=== PATIENT | female | born 1940 | race Caucasian/White ===

== ENCOUNTER 2018-06-11 21:36 | Outpatient (REF) | payer MEDICARE, SELFPAY ==
[2018-06-11 22:12] LABS: Anion Gap 4.5 mmol/L (3-11); BUN 15 mg/dL (7-18); CO2 36.5 mmol/L (21.0-32.0); CREATININE 0.74 mg/dL (0.55-1.02); Calcium 9.5 mg/dL (8.5-10.1); Chloride 95 mmol/L (98-107); Glucose 256 mg/dL (70-100); Potassium 5.1 mmol/L (3.5-5.1); Sodium 136 mmol/L (136-145)
== END 2018-06-11 21:56 ==
LOC: NCHCN 21:36
PROVIDERS: PCP Family Medicine; Visit Provider Family Medicine
DX: I10 Essential (primary) hypertension (principal)
CPT/HCPCS: 80048

== ENCOUNTER 2018-09-16 20:56 | Outpatient (REF) | payer MEDICARE, SELFPAY ==
[2018-09-16 22:14] LABS: Anion Gap 5.8 mmol/L (3-11); BUN 31 mg/dL (7-18); CO2 35.2 mmol/L (21.0-32.0); CREATININE 0.91 mg/dL (0.55-1.02); Calcium 9.3 mg/dL (8.5-10.1); Chloride 97 mmol/L (98-107); Glucose 154 mg/dL (70-100); Potassium 4.6 mmol/L (3.5-5.1); Sodium 138 mmol/L (136-145)
== END 2018-09-16 21:16 ==
LOC: LBN 20:56
PROVIDERS: PCP Family Medicine; Visit Provider Family Medicine
DX: I50.9 Heart failure, unspecified (principal)
CPT/HCPCS: 80048

== ENCOUNTER 2019-05-13 11:44 | Outpatient (CLI) | payer MEDICARE, SELFPAY ==
[2019-05-13 13:34] LABS: Abs Immature Grans 0.03 k/cumm (0.0-0.09); Absolute Basophil Count 0.04 k/cumm (0.0-0.2); Absolute Eosinophil Count 0.23 k/cumm (0.0-0.7); Absolute Monocyte Count 0.76 k/cumm (0.11-0.7); Absolute Neutrophil Count 5.05 k/cumm (1.2-6.7); Basophils % 0.5; Eosinophils % 2.9; HCT 46.8 % (36.0-46.0); HGB 15.3 g/dL (12.0-15.5); Immature Grans % 0.4; Lymphocytes % 23.7; Mean Corp. HGB Concentration 32.7 g/dL (32.0-36.0); Mean Corpuscular Volume 97.9 fL (80-95); Mean Platelet Volume 12.6 fL (8.0-11.0); Monocytes % 9.5; Platelet Count 284 x1000/uL (130-400); RBC 4.78 m/cumm (4.00-5.20); RBC Distribution Width 13.9 % (11.7-14.6); White Blood Cell Count 8.01 k/cumm (4.4-10.8)
[2019-05-13 13:53] LABS: Anion Gap 6.9 mmol/L (3-11); BUN 15 mg/dL (7-18); CO2 35.1 mmol/L (21.0-32.0); CREATININE 0.73 mg/dL (0.55-1.02); Chloride 95 mmol/L (98-107); Glucose 173 mg/dL (70-100); Potassium 3.6 mmol/L (3.5-5.1); Sodium 137 mmol/L (136-145)
[2019-05-13 14:48] LABS: Hemoglobin A1C 7.3 % (4.5-6.2)
== END 2019-05-13 12:04 ==
PROVIDERS: PCP Family Medicine; Visit Provider Nurse Practitioner Adult Health
DX: E11.9 Type 2 diabetes mellitus without complications (principal); D72.9 Disorder of white blood cells, unspecified
CPT/HCPCS: 36415; 80048; 83036; 85025

== ENCOUNTER 2019-05-16 23:12 | Outpatient (REF) | payer MEDICARE, SELFPAY ==
[2019-05-18 19:25] LABS: Specimen Description Feces
[2019-05-19 07:48] LABS: Result Positive
== END 2019-05-16 23:32 ==
LOC: LBN 23:12
PROVIDERS: PCP Family Medicine; Visit Provider Nurse Practitioner Adult Health
DX: K59.1 Functional diarrhea (principal)
CPT/HCPCS: 87324; 87798

== ENCOUNTER 2019-06-01 15:26 | Outpatient (REF) | payer MEDICARE, SELFPAY ==
[2019-06-01 16:02] LABS: Abs Immature Grans 0.02 k/cumm (0.0-0.09); Absolute Basophil Count 0.06 k/cumm (0.0-0.2); Absolute Eosinophil Count 0.15 k/cumm (0.0-0.7); Absolute Lymphocyte Count 2.46 k/cumm (1.2-3.4); Absolute Monocyte Count 0.97 k/cumm (0.11-0.7); Absolute Neutrophil Count 5.13 k/cumm (1.2-6.7); Basophils % 0.7; Eosinophils % 1.7; HCT 46.2 % (36.0-46.0); HGB 15.7 g/dL (12.0-15.5); Immature Grans % 0.2; Mean Corpuscular Hemoglobin 32.9 pg (27.0-33.0); Mean Corpuscular Volume 96.9 fL (80-95); Neutrophils % 58.4; Platelet Count 294 x1000/uL (130-400); RBC 4.77 m/cumm (4.00-5.20); RBC Distribution Width 14.6 % (11.7-14.6); White Blood Cell Count 8.79 k/cumm (4.4-10.8)
[2019-06-01 16:07] LABS: Anion Gap 8.1 mmol/L (3-11); BUN 10 mg/dL (7-18); CO2 33.9 mmol/L (21.0-32.0); CREATININE 0.71 mg/dL (0.55-1.02); Calcium 8.6 mg/dL (8.5-10.1); Chloride 101 mmol/L (98-107); Glucose 170 mg/dL (70-100); Potassium 3.3 mmol/L (3.5-5.1); Sodium 143 mmol/L (136-145)
== END 2019-06-01 15:46 ==
LOC: LBN 15:26
PROVIDERS: PCP Family Medicine; Visit Provider Nurse Practitioner Adult Health
DX: R71.8 Other abnormality of red blood cells (principal); N39.0 Urinary tract infection, site not specified; E11.9 Type 2 diabetes mellitus without complications
CPT/HCPCS: 80048; 85025

== ENCOUNTER 2019-06-10 10:40 | Outpatient (CLI) | payer MEDICARE, SELFPAY ==
[2019-06-10 12:28] LABS: Anion Gap 6.5 mmol/L (3-11); BUN 10 mg/dL (7-18); CO2 34.5 mmol/L (21.0-32.0); Calcium 9.2 mg/dL (8.5-10.1); Chloride 103 mmol/L (98-107); Glucose 210 mg/dL (70-100); Potassium 4.3 mmol/L (3.5-5.1); Sodium 144 mmol/L (136-145)
== END 2019-06-10 11:00 ==
PROVIDERS: PCP Family Medicine; Visit Provider Nurse Practitioner Adult Health
DX: I50.9 Heart failure, unspecified (principal)
CPT/HCPCS: 80048

== ENCOUNTER 2019-06-25 16:02 | Outpatient (REF) | payer MEDICARE, SELFPAY ==
[2019-06-25 17:16] LABS: Abs Immature Grans 0.06 k/cumm (0.0-0.09); HCT 51.8 % (36.0-46.0); HGB 16.8 g/dL (12.0-15.5); Mean Corp. HGB Concentration 32.4 g/dL (32.0-36.0); Mean Corpuscular Volume 98.7 fL (80-95); Mean Platelet Volume 12.1 fL (8.0-11.0); Platelet Count 292 x1000/uL (130-400); RBC 5.25 m/cumm (4.00-5.20); RBC Distribution Width 14.7 % (11.7-14.6); White Blood Cell Count 14.26 k/cumm (4.4-10.8)
[2019-06-25 17:31] LABS: ALT 41 U/L (14-59); AST 36 U/L (15-37); Albumin 3.3 g/dL (3.4-5.0); Alkaline Phosphatase 171 U/L (46-116); Anion Gap 11.1 mmol/L (3-11); BUN 15 mg/dL (7-18); Bilirubin, Total 0.6 mg/dL (0.2-1.0); CO2 31.9 mmol/L (21.0-32.0); CREATININE 0.74 mg/dL (0.55-1.02); Calcium 9.7 mg/dL (8.5-10.1); Chloride 96 mmol/L (98-107); Glucose 144 mg/dL (74-106); Magnesium 1.7 mg/dL (1.8-2.4); Potassium 4.5 mmol/L (3.5-5.1); Sodium 139 mmol/L (136-145); Total Protein 7.3 g/dL (6.4-8.2)
[2019-06-25 18:32] LABS: Absolute Lymphocyte Count 0.57 k/cumm (1.2-3.4); Absolute Neutrophil Count 11.98 k/cumm (1.2-6.7); Atypical Lymphocytes % 0; Diff Comment Manual Differential; RBC Morphology Normal
[2019-06-25 18:33] LABS: Absolute Monocyte Count 1.71 k/cumm (0.11-0.7)
== END 2019-06-25 16:22 ==
LOC: LBN 16:02
PROVIDERS: PCP Family Medicine; Visit Provider Nurse Practitioner Adult Health
DX: I11.0 Hypertensive heart disease with heart failure (principal); M62.81 Muscle weakness (generalized)
CPT/HCPCS: 80053; 83735; 85025

== ENCOUNTER 2019-08-07 02:07 | Outpatient (CLI) | payer MEDICARE, OTHER, SELFPAY ==
[2019-08-07] MEDS: Regadenoson 0.4 MG/5 ML SYR IVP (14:01)
--- NOTE | 2019-08-07 14:15 | DI.NM_ITS ---
APPROVED REPORT Exam: Pharmacologic Patient Location: Out-Patient Room/Bed: Stress Nurse: Chloe Jeronimo RN BMI: 36.35 Indications: Pre Surgical Screening. Medical History Medical History: Demand Ischemia, Heart Failure, GERD, Morbid Obesity, CHF, Frequent PVC???s, Sleep A pnea. Cardiac Medications: Simvastatin, Aspirin, Furosemide, Metoprolol Succinate, Losartan Allergies: IVP Dye Cardiac Risk Factors: HTN, PVD, Diabetes (insulin), Hyperlipidemia Previous Cardiac Procedures: None Pretest Chest Pain Characteristics: No chest pain Exercise History: Sedentary Physical Disabilities: Back--History compression fracture. Lung Sounds: Clear to auscultation Heart Sounds: Regular Stress Test Details Test: Pharmacologic stress testing performed using 0.4 mg of regadenoson per 5 mL given IV over 10 s econds. Reason for pharmacologic stress test: physical limitation. Nuclear Acquisition: Rest Tc-99m/Stress Tc-99m 1 day Rest Isotope: Tc-99m Sestamibi. Dose: 10.5 Date: 08/07/2019 Injection Time: 1225 Stress Isotope: Tc-99m Sestamibi. Dose: 32.3 Date: 08/07/2019 Injection Time: 1425 HR Max Heart Rate (APMHR): 144 bpm Resting HR Supine: 85 bpm Target HR (85% APMHR): 122 bpm HR response to stress: Normal HR response to stress. BP Resting BP Supine: 134/80 mmHg Max BP: 180/90 mmHg BP response to stress: Noted a 30 point rise in SBP from 3 minutes to 6 minutes post Lexiscan injec tion. ECG Resting ECG: Sinus Rhythm With LBBB ST Change: Normal Ectopy: None Stress ECG: Sinus Tachycardia ST Change: Normal Arrhythmia: None Recovery ECG: Sinus Rhythm Recovery ST Change: Normal Clinical Stress Symptoms: None Stress ECG Conclusion 1. This is a pharmacological stress test. 2. The ECG portion of the exam was inconclusive due to left bundle branch block at baseline. Protocol Used: Regadenoson Stress Test Summary STAGE HR BP Symptoms NOTES Supine 85 134/80 Standing 1 min 85 160/80 2 min 3 min 88 150/90 4 min 5 min 6 min 89 180/90 7 min 8 min 9 min 90 170/90 10 min 12 min 92 148/80 MPI Conclusion There is no evidence of ischemia on the imaging portion of this exam. Ejection fraction was within normal limits. This represents a normal SPECT stress test. Radiologist Interpretation Radiologist Interpretation by: Tony Collier MD Interpretation Date/Time: 08/08/2019 13:05:25
== END 2019-08-07 02:27 ==
PROVIDERS: PCP Family Medicine; Visit Provider Nurse Practitioner Family
DX: R07.9 Chest pain, unspecified (principal); I50.9 Heart failure, unspecified; I10 Essential (primary) hypertension; E78.5 Hyperlipidemia, unspecified; K21.9 Gastro-esophageal reflux disease without esophagitis; Z01.810 Encounter for preprocedural cardiovascular examination
CPT/HCPCS: 78452; 93016; 93018; 93017; J2785

== ENCOUNTER 2019-08-28 21:42 | Outpatient (REF) | payer MEDICARE, SELFPAY ==
[2019-08-28 21:40] LABS: Bilirubin Small (Negative); Blood Large (Negative); Clarity Cloudy (Clear); Glucose Negative (Negative); Ketones Negative (Negative); Leukocyte Esterase Large (Negative); Nitrite Negative (Negative); Specific Gravity 1.015 (1.005-1.025); Urobilinogen 0.2 EU/dL (Up TO 0.2); pH 8.5 (5-8)
[2019-08-28 21:55] LABS: Bacteria Moderate HPF (Negative); Epithelial Cells Many HPF (Negative); WBC 20-50 HPF (0-5)
[2019-08-28 21:57] LABS: Crystals Many Triple Phos HPF (Negative)
[2019-08-28 21:58] LABS: C & S Indicated? No/Sq. Contamination
== END 2019-08-28 22:02 ==
LOC: LBN 21:42
PROVIDERS: PCP Family Medicine; Visit Provider Family Medicine
DX: R32 Unspecified urinary incontinence (principal); R35.0 Frequency of micturition
CPT/HCPCS: 81003; 81015; 87086

== ENCOUNTER 2019-09-05 20:55 | Outpatient (REF) | payer MEDICARE, SELFPAY | END 2019-09-05 21:15 | LOC: NCHCN 20:55 | PROVIDERS: PCP Family Medicine; Visit Provider Family Medicine | DX: R19.7 Diarrhea, unspecified (principal) | CPT/HCPCS: 82272; 83630; 87324; 87798 ==

== ENCOUNTER 2020-08-11 14:09 | Outpatient (REF) | payer MEDICARE, SELFPAY ==
[2020-08-11 16:38] LABS: ALT 31 U/L (14-59); AST 28 U/L (15-37); Albumin 3.1 g/dL (3.4-5.0); Alkaline Phosphatase 123 U/L (46-116); Anion Gap 5.9 mmol/L (3-11); BUN 25 mg/dL (7-18); Bilirubin, Total 0.4 mg/dL (0.2-1.0); CO2 35.1 mmol/L (21.0-32.0); CREATININE 0.74 mg/dL (0.55-1.02); Calcium 9.5 mg/dL (8.5-10.1); Calculated LDL 78 mg/dL (<100); Chloride 101 mmol/L (98-107); Cholesterol 141 mg/dL (<200); Glucose 108 mg/dL (74-106); HDL Cholesterol 49 mg/dL (40-60); Potassium 4.4 mmol/L (3.5-5.1); Sodium 142 mmol/L (136-145); Total Protein 6.9 g/dL (6.4-8.2); Triglyceride 71 mg/dL (<150)
[2020-08-11 17:11] LABS: Hemoglobin A1C 6.3 % (<5.7)
== END 2020-08-11 14:29 ==
LOC: LBN 14:09
PROVIDERS: PCP Family Medicine; Visit Provider Family Medicine
DX: I11.0 Hypertensive heart disease with heart failure (principal); E11.40 Type 2 diabetes mellitus with diabetic neuropathy, unspecified; E55.9 Vitamin D deficiency, unspecified
CPT/HCPCS: 80053; 80061; 82306; 83036

== ENCOUNTER 2021-01-07 19:34 | Outpatient (REF) | payer MEDICARE, SELFPAY ==
[2021-01-07 20:38] LABS: Anion Gap 2.6 mmol/L (3-11); BUN 23 mg/dL (7-18); CO2 35.4 mmol/L (21.0-32.0); CREATININE 0.7 mg/dL (0.55-1.02); Calcium 8.9 mg/dL (8.5-10.1); Chloride 102 mmol/L (98-107); Glucose 158 mg/dL (74-106); Potassium 4.6 mmol/L (3.5-5.1); Sodium 140 mmol/L (136-145)
== END 2021-01-07 19:35 | disposition home or self-care (01) ==
LOC: LBN 19:34
PROVIDERS: PCP Family Medicine; Visit Provider Family Medicine
DX: I50.31 Acute diastolic (congestive) heart failure (principal)
CPT/HCPCS: 80048

== ENCOUNTER 2021-06-30 19:18 | Outpatient (REF) | payer MEDICARE, SELFPAY ==
[2021-06-30 22:19] LABS: HGB 14.9 g/dL (11.2-15.7); MCH 32.5 pg (27.0-33.0); MCHC 32.4 % (32.0-36.0); MCV 100.4 fL (80-95); MPV 11.6 fL (8.0-11.0); Platelet Count 274 10^3/uL (130-400); RBC 4.58 10^6/uL (3.93-5.22); RDW 12.3 % (11.7-14.6); RDW-SD 45.8 fL; WBC 9.29 10^3/uL (4.4-10.8)
[2021-06-30 22:39] LABS: ALT 32 U/L (14-59); AST 22 U/L (15-37); Albumin 3.4 g/dL (3.4-5.0); Alkaline Phosphatase 126 U/L (46-116); Anion Gap 4.4 mmol/L (3-11); BUN 26 mg/dL (7-18); Bilirubin, Total 0.3 mg/dL (0.2-1.0); CO2 32.6 mmol/L (21.0-32.0); Calcium 9.5 mg/dL (8.5-10.1); Chloride 101 mmol/L (98-107); Estimated GFR 53.62 (mL/min/1.73m2); Glucose 147 mg/dL (74-106); NT-proBNP 7586 pg/mL (<300); Potassium 4.8 mmol/L (3.5-5.1); Sodium 138 mmol/L (136-145)
== END 2021-06-30 19:19 | disposition home or self-care (01) ==
LOC: NCHCN 19:18
PROVIDERS: PCP Family Medicine; Visit Provider Registered Nurse
DX: I50.9 Heart failure, unspecified (principal)
CPT/HCPCS: 80053; 85027; 83880

== ENCOUNTER 2021-07-08 23:58 | Outpatient (REF) | payer MEDICARE, SELFPAY ==
[2021-07-08 20:54] LABS: BUN 52 mg/dL (7-18); CREATININE 1.2 mg/dL (0.55-1.02); Calcium 9.5 mg/dL (8.5-10.1); Chloride 99 mmol/L (98-107); Estimated GFR 43.45 (mL/min/1.73m2); Glucose 217 mg/dL (74-106); Potassium 4.8 mmol/L (3.5-5.1); Sodium 140 mmol/L (136-145)
== END 2021-07-08 23:59 | disposition home or self-care (01) ==
LOC: LBN 23:58
PROVIDERS: PCP Family Medicine; Visit Provider Registered Nurse
DX: I50.9 Heart failure, unspecified (principal)
CPT/HCPCS: 80048

== ENCOUNTER 2021-07-19 20:59 | Outpatient (REF) | payer MEDICARE, SELFPAY ==
[2021-07-19 22:57] LABS: Anion Gap 3.9 mmol/L (3-11); BUN 67 mg/dL (7-18); CO2 35.1 mmol/L (21.0-32.0); CREATININE 1.4 mg/dL (0.55-1.02); Calcium 9.5 mg/dL (8.5-10.1); Chloride 97 mmol/L (98-107); Estimated GFR 36.37 (mL/min/1.73m2); Glucose 110 mg/dL (74-106); Potassium 5.4 mmol/L (3.5-5.1); Sodium 136 mmol/L (136-145)
== END 2021-07-19 21:00 | disposition home or self-care (01) ==
LOC: LBN 20:59
PROVIDERS: PCP Family Medicine; Visit Provider Family Medicine
DX: I50.9 Heart failure, unspecified (principal)
CPT/HCPCS: 80048

== ENCOUNTER 2021-08-18 21:33 | Outpatient (REF) | payer MEDICARE, SELFPAY ==
[2021-08-18 21:28] LABS: Anion Gap 4.9 mmol/L (3-11); BUN 38 mg/dL (7-18); CO2 31.1 mmol/L (21.0-32.0); Calcium 8.9 mg/dL (8.5-10.1); Chloride 101 mmol/L (98-107); Estimated GFR 53.48 (mL/min/1.73m2); Glucose 219 mg/dL (74-106); Potassium 5.2 mmol/L (3.5-5.1); Sodium 137 mmol/L (136-145)
== END 2021-08-18 21:34 | disposition home or self-care (01) ==
LOC: LBN 21:33
PROVIDERS: PCP Family Medicine; Visit Provider Family Medicine
DX: I50.9 Heart failure, unspecified (principal)
CPT/HCPCS: 80048

== ENCOUNTER 2021-10-04 15:50 | Outpatient (REF) | payer MEDICARE, SELFPAY ==
[2021-10-04 18:10] LABS: Calculated LDL 63 mg/dL (<100); Cholesterol 128 mg/dL (<200); HDL Cholesterol 48 mg/dL (40-60); Hemoglobin A1C 6.8 % (<5.7); Triglyceride 89 mg/dL (<150)
== END 2021-10-04 15:51 | disposition home or self-care (01) ==
LOC: LBN 15:50
PROVIDERS: PCP Family Medicine; Visit Provider Registered Nurse
DX: E11.622 Type 2 diabetes mellitus with other skin ulcer (principal); I11.0 Hypertensive heart disease with heart failure
CPT/HCPCS: 80061; 83036

== ENCOUNTER 2021-10-27 20:35 | Outpatient (REF) | payer MEDICARE, SELFPAY ==
[2021-10-27 20:52] LABS: Anion Gap 4.9 mmol/L (3-11); BUN 43 mg/dL (7-18); CO2 32.1 mmol/L (21.0-32.0); Chloride 102 mmol/L (98-107); Estimated GFR 53.48 (mL/min/1.73m2); Glucose 181 mg/dL (74-106); Potassium 5.1 mmol/L (3.5-5.1); Sodium 139 mmol/L (136-145)
== END 2021-10-27 20:36 | disposition home or self-care (01) ==
LOC: LBN 20:35
PROVIDERS: PCP Family Medicine; Visit Provider Family Medicine
DX: I10 Essential (primary) hypertension (principal); I50.9 Heart failure, unspecified
CPT/HCPCS: 80048

== ENCOUNTER 2021-12-16 17:19 | Outpatient (REF) | payer MEDICARE, SELFPAY ==
[2021-12-16 16:56] LABS: BUN 45 mg/dL (7-18); CREATININE 1.1 mg/dL (0.55-1.02); Calcium 8.7 mg/dL (8.5-10.1); Chloride 100 mmol/L (98-107); Estimated GFR 47.91 (mL/min/1.73m2); Glucose 149 mg/dL (74-106); Potassium 4.8 mmol/L (3.5-5.1); Sodium 140 mmol/L (136-145)
== END 2021-12-16 17:20 | disposition home or self-care (01) ==
LOC: LBN 17:19
PROVIDERS: PCP Family Medicine; Visit Provider Registered Nurse
DX: I50.9 Heart failure, unspecified (principal)
CPT/HCPCS: 80048

== ENCOUNTER 2022-02-23 18:32 | Outpatient (REF) | payer MEDICARE, OTHER, SELFPAY ==
[2022-02-23 20:43] LABS: Hemoglobin A1C 5.8 % (<5.7)
[2022-02-23 20:44] LABS: Anion Gap 6.1 mmol/L (3-11); BUN 30 mg/dL (7-18); CO2 31.9 mmol/L (21.0-32.0); Calcium 9.4 mg/dL (8.5-10.1); Chloride 92 mmol/L (98-107); Estimated GFR 53.48 (mL/min/1.73m2); Glucose 161 mg/dL (74-106); NT-proBNP 605 pg/mL (<300); Potassium 4.8 mmol/L (3.5-5.1); Sodium 130 mmol/L (136-145)
== END 2022-02-23 18:33 | disposition home or self-care (01) ==
LOC: NCHCN 18:32
PROVIDERS: PCP Family Medicine; Visit Provider Registered Nurse
DX: E11.8 Type 2 diabetes mellitus with unspecified complications (principal); I50.9 Heart failure, unspecified; I25.2 Old myocardial infarction; E87.6 Hypokalemia
CPT/HCPCS: 80048; 83036; 83880

== ENCOUNTER 2022-03-02 21:15 | Outpatient (REF) | payer MEDICARE, OTHER, SELFPAY ==
[2022-03-02 22:14] LABS: Anion Gap 3.5 mmol/L (3-11); BUN 29 mg/dL (7-18); CO2 31.5 mmol/L (21.0-32.0); Calcium 8.7 mg/dL (8.5-10.1); Chloride 90 mmol/L (98-107); Estimated GFR 53.48 (mL/min/1.73m2); Glucose 157 mg/dL (74-106); Potassium 5.5 mmol/L (3.5-5.1); Sodium 125 mmol/L (136-145)
== END 2022-03-02 21:16 | disposition home or self-care (01) ==
LOC: NCHCN 21:15
PROVIDERS: PCP Family Medicine; Visit Provider Registered Nurse
DX: E87.1 Hypo-osmolality and hyponatremia (principal)
CPT/HCPCS: 80048

== ENCOUNTER 2022-03-09 14:14 | Outpatient (REF) | payer MEDICARE, OTHER, SELFPAY ==
[2022-03-09 14:05] LABS: HCT 42.5 % (36.0-46.0); HGB 14.2 g/dL (11.2-15.7); MCH 33.1 pg (27.0-33.0); MCHC 33.4 % (32.0-36.0); MCV 99 fL (80-95); MPV 11.2 fL (8.0-11.0); Platelet Count 329 10^3/uL (130-400); RBC 4.29 10^6/uL (3.93-5.22); RDW 12.3 % (11.7-14.6); RDW-SD 45.1 fL; WBC 9.49 10^3/uL (4.4-10.8)
[2022-03-09 14:11] LABS: Anion Gap 6.5 mmol/L (3-11); BUN 35 mg/dL (7-18); CO2 31.5 mmol/L (21.0-32.0); CREATININE 0.8 mg/dL (0.55-1.02); Calcium 9.3 mg/dL (8.5-10.1); Chloride 92 mmol/L (98-107); Glucose 125 mg/dL (74-106); Potassium 5.3 mmol/L (3.5-5.1); Sodium 130 mmol/L (136-145)
== END 2022-03-09 14:15 | disposition home or self-care (01) ==
LOC: NCHCN 14:14
PROVIDERS: PCP Family Medicine; Visit Provider Registered Nurse
DX: E87.1 Hypo-osmolality and hyponatremia (principal); I49.9 Cardiac arrhythmia, unspecified
CPT/HCPCS: 80048; 85027

== ENCOUNTER 2022-03-22 09:00 | Outpatient (REF) | payer MEDICARE, OTHER, SELFPAY ==
[2022-03-23 12:06] LABS: Anion Gap 4.7 mmol/L (3-11); BUN 41 mg/dL (7-18); Bilirubin Negative (Negative); Blood Moderate (Negative); CO2 35.3 mmol/L (21.0-32.0); CREATININE 0.8 mg/dL (0.55-1.02); Calcium 9.3 mg/dL (8.5-10.1); Chloride 91 mmol/L (98-107); Clarity Cloudy (Clear); Glucose 136 mg/dL (74-106); Glucose Negative (Negative); Ketones Negative (Negative); Leukocyte Esterase Large (Negative); NT-proBNP 297 pg/mL (<300); Nitrite Negative (Negative); Sodium 131 mmol/L (136-145); Specific Gravity 1.015 (1.005-1.025); Urobilinogen 0.2 EU/dL (Up TO 0.2)
[2022-03-23 12:08] LABS: Abs Immature Grans 0.03 10^3/uL (0.0-0.06); Absolute Basophil Count 0.06 10^3/uL (0.0-0.2); Absolute Lymphocyte Count 1.63 10^3/uL (1.2-3.4); Basophils % 0.5; Eosinophils % 0.5; HCT 41.5 % (36.0-46.0); HGB 13.8 g/dL (11.2-15.7); Immature Grans % 0.2; Lymphocytes % 12.7; MCH 33.1 pg (27.0-33.0); MCHC 33.3 % (32.0-36.0); MCV 100 fL (80-95); MPV 12.1 fL (8.0-11.0); Monocytes % 7.2; Neutrophils % 78.9; Platelet Count 340 10^3/uL (130-400); RBC 4.17 10^6/uL (3.93-5.22); RDW 11.9 % (11.7-14.6); WBC 12.84 10^3/uL (4.4-10.8)
[2022-03-23 12:09] LABS: Absolute Eosinophil Count 0.06 10^3/uL (0.0-0.7); Absolute Monocyte Count 0.92 10^3/uL (0.1-0.8); Absolute Neutrophil Count 10.13 10^3/uL (1.2-6.7)
[2022-03-23 12:28] LABS: Bacteria Few HPF (Negative); C & S Indicated? C&S Done As Ordered; Casts Negative LPF (Negative); Crystals Negative HPF (Negative); Epithelial Cells Few HPF (Negative); Mucus Negative (Negative); RBC 20-50 HPF (0-2); WBC >50 HPF (0-5)
== END 2022-03-22 09:01 | disposition home or self-care (01) ==
LOC: NCHCN 09:00
PROVIDERS: PCP Family Medicine; Visit Provider Family Medicine
DX: I11.0 Hypertensive heart disease with heart failure (principal)
CPT/HCPCS: 80048; 87077; 81003; 81015; 83880; 85025; 87086; 87186

== ENCOUNTER 2022-04-21 15:38 | Outpatient (REF) | payer MEDICARE, OTHER, SELFPAY ==
[2022-04-21 17:35] LABS: BUN 45 mg/dL (7-18); CREATININE 1.2 mg/dL (0.55-1.02); Chloride 91 mmol/L (98-107); Estimated GFR 46.05 (mL/min/1.73m2); Glucose 279 mg/dL (74-106); Potassium 4.7 mmol/L (3.5-5.1); Sodium 133 mmol/L (136-145)
[2022-04-21 17:48] LABS: Calcium 11.7 mg/dL (8.5-10.1)
== END 2022-04-21 15:39 | disposition home or self-care (01) ==
LOC: NCHCN 15:38
PROVIDERS: PCP Family Medicine; Visit Provider Family Medicine
DX: N17.9 Acute kidney failure, unspecified (principal)
CPT/HCPCS: 80048